=== PATIENT | male | born 1970 | race Caucasian/White ===

== ENCOUNTER 2018-07-16 15:45 | Inpatient (IN) | payer OTHER ==
[2018-07-16 17:54] VITALS: BMI 28.6
--- NOTE | 2018-07-16 18:18 | HP ---
COWS - Scale Resting Pulse: 0= [place] 80 or Below Sweatin=Flushed/Facial Moisture Restless Observation: 3= Extraneous Movement Pupil Size: 2= Moderately Dilated (Pupils = 4 mm) Bone or Joint Aches: 1= Mild Discomfort Runny Nose/ Eye Tearin= Nasal Congestion GI Upset > 30mins: 1= Stomach Cramp Tremor Observation: 2= Slight Tremor Visible Yawning Observation: 0= None Anxiety or Irritability: 1=Feels Anxious/Irritable Goose Flesh Skin: 0=Smooth Skin COWS Score: 13 CIWA Score - Admission Criteria [facility] Guidelines: Admission for Medically Managed Detox: Requires at least one of the followin. CIWA greater than 12 2. Seizures within the past 24 hours 3. Delirium tremens within the past 24 hours 4. Hallucinations within the past 24 hours 5. Acute intervention needed for co occurring medical disorder 6. Acute intervention needed for co occurring psychiatric disorder 7. Severe withdrawal that cannot be handled at a lower level of care (continued vomiting, continued diarrhea, abnormal vital signs) requiring intravenous medication and/or fluids 8. Admission ROS [facility] Chief Complaint: Here for detox. I'm having withdrawal from heroin. Allergies/Adverse Reactions: Allergies Allergy/AdvReac Type Severity Reaction Status Date / Time No Known Allergies Allergy Verified 07/16/18 17:47 History of Present Illness: Here for heroin detox. Has had a few detoxe's in past, but this is the first admission to [facility]. Heroin use began at age 23. States current use x years. Marijuana use began at age 12. Uses 1-2 x/ month. Cocaine use began at age 35. Uses about $20/day Denies BZo use. Stopped Nicotine use 42 months ago. Longest length sobriety x 5 years - in . Overdoses x 2; last 2011. Has a Narcan kit at home. Denies seizures or blackouts. PMHx: Denies significant PMH MHHx: Anxiety, mild depression. Last saw a MH Provider 1 year ago. Denies thoughts of harming self or others. Patient Name: Malcom Paulino Date: 1970 Address: [address] [place] [address] Sex: Male Rx Written Rx Dispensed Drug Quantity Days Supply Prescriber Name 08/31/2017 08/31/2017 clonazepam 1 mg tablet 63 21 Leandro Calixto NP 07/30/2017 07/30/2017 clonazepam 1 mg tablet 90 30 Leandro Calixto NP Exam Limitations: No Limitations - Ebola screening Have you traveled outside of the country in the last 21 days: No (N) Have you had contact with anyone from an Ebola affected area: No Have you been sick,other than usual withdrawal symptoms: No (Denies recent exposure to measles.) Do you have a fever: No - Review of Systems Constitutional: Chills, Diaphoresis EENT: reports: Blurred Vision, Nose Congestion Respiratory: reports: No Symptoms reported Cardiac: reports: No Symptoms Reported GI: reports: Abdominal cramping : reports: No Symptoms Reported Musculoskeletal: reports: Back Pain (r/t withdrawal) Integumentary: reports: No Symptoms Reported Neuro: reports: Tremors Endocrine: reports: No Symptoms Reported Hematology: reports: No Symptoms Reported Psychiatric: reports: Judgement Intact, Orientated x3, Agitated, Anxious, Depressed (Denies thoughts of harming self or others.) Other Systems: Reviewed and Negative Patient History - PPD History Previous Implant?: Yes Documented Results: Negative w/o proof Implanted On Prior [facility] Admission?: Yes PPD to be Administered?: Yes - Smoking Cessation Smoking history: Former smoker Have you smoked in the past 12 months: No Hx Chewing Tobacco Use: No Initiated information on smoking cessation: No - Substance & Tx. History Hx Alcohol Use: No Hx Substance Use: Yes Substance Use Type: Cocaine, Marijuana, Opiates Hx Substance Use Treatment: Yes (detox, rehab) - Substances abused Heroin Substance route: Inhalation Frequency: Daily Amount used: 6 bags daily Age of first use: 23 Date of last use: 07/15/18 Admission Physical Exam BHS - Vital Signs Vital Signs: Vital Signs - 24 hr 07/16/18 17:49 Temperature 98.7 F Pulse Rate 70 Respiratory 16 Rate Blood Pressure 155/102 H - Physical General Appearance: Yes: Nourished, Mild Distress, Tremorous, Sweating, Anxious HEENTM: Yes: EOMI (Jerking movement of eyes upon (R) lateral gaze), Hearing grossly Normal, Normocephalic, Normal Voice, LUISA (Pupils = 4 mm), Pharynx Normal Respiratory: Yes: Lungs Clear, Normal Breath Sounds, No Respiratory Distress Neck: Yes: No masses,lesions,Nodules, Supple Breast: Yes: Breast Exam Deferred Cardiology: Yes: Regular Rhythm, Regular Rate, S1, S2 Abdominal: Yes: Non Tender, Flat, Soft, Increased Bowel Sounds Genitourinary: Yes: Within Normal Limits Back: Yes: Normal Inspection Musculoskeletal: Yes: full range of Motion, Gait Steady Extremities: Yes: Normal Capillary Refill, Normal Range of Motion, Non-Tender, Tremors Neurological: Yes: roustabout head II-XII NML intact (Jerking movement of eyes upon (R) lateral gaze), Fully Oriented, Alert, Motor Strength 5/5 Integumentary: Yes: Normal Color, Warm, Other (Cracked skin at fold of toes, dry flaky skin on feet) Lymphatic: Yes: Within Normal Limits - Diagnostic (1) Opioid dependence with withdrawal Current Visit: Yes Status: Acute (2) Cannabis abuse, uncomplicated Current Visit: Yes Status: Chronic (3) Cocaine dependence, uncomplicated Current Visit: Yes Status: Chronic (4) Elevated blood pressure reading in office without diagnosis of hypertension Current Visit: Yes Status: Acute (5) Tinea pedis Current Visit: Yes Status: Chronic Qualifiers: Laterality: bilateral Qualified Code(s): B35.3 - Tinea pedis (6) Nystagmus Current Visit: Yes Status: Acute Cleared for Admission [facility] - Detox or Rehab [facility] Level of Care: Medically Managed Detox Regimen/Protocol: Methadone Claeared for Rehab Admission: No Breathalyzer - Breathalyzer Breathalyzer: 0 Urine Drug Screen - Test Device Lot number: [id number] Expiration date: 04/01/19 - Control Is test valid?: Yes - Results Drug screen NEGATIVE: No Urine drug screen results: THC-Marijuana, FARHAN-Cocaine, BZO-Benzodiazepines Inpatient Rehab Admission - Rehab Decision to Admit Inpatient rehab admission?: No
[2018-07-16] MEDS ORDERED: IBUPROFEN 400 MG TABLET (FP) PO PRN (18:39)
[2018-07-16] MEDS ORDERED: MAG HYDROX/AL HYDROX/SIMETH 30 ML UNIT-DOSE CUP PO PRN (18:39)
[2018-07-16] MEDS ORDERED: PROCHLORPERAZINE MALEATE 5 MG TABLET PO PRN (18:39)
[2018-07-16] MEDS ORDERED: BISMUTH SUBSALICYLATE 524 MG/30 ML UD PO PRN (18:39)
[2018-07-16] MEDS ORDERED: cloNIDine HCL 0.1 MG TABLET PO PRN (18:39)
[2018-07-16] MEDS ORDERED: NALOXONE HCL 0.4 MG/ML VIAL IVPUSH PRN (18:39)
[2018-07-16] MEDS ORDERED: MAGNESIUM HYDROX 2400MG/30ML ORAL SUSPENSION 30 ML CUP PO PRN (18:39)
[2018-07-16] MEDS ORDERED: MAGNESIUM CITRATE 300 ML BOTTLE PO PRN (18:39)
[2018-07-16] MEDS ORDERED: MENTHOL/PHENOL 1 EACH UD MM PRN (18:39)
[2018-07-16] MEDS ORDERED: ACETAMINOPHEN 325 MG TABLET (FP) PO PRN ×2 (18:39)
[2018-07-16] MEDS ORDERED: cloNIDine HCL 0.1 MG TABLET PO ONE (19:08)
[2018-07-16] MEDS ORDERED: METHADONE HCL 10 MG TABLET (FOR DETOX USE ONLY) PO ONE ×2 (19:30→23:00)
[2018-07-16] MEDS: METHOCARBAMOL 500 MG TABLET PO PRN (20:20)
[2018-07-16] MEDS: THIAMINE HCL 100 MG TABLET (FP) PO SCH (22:04)
[2018-07-16] MEDS: TOLNAFTATE 1% CREAM 15 GM TUBE TP SCH (22:05)
[2018-07-16] MEDS: MELATONIN 5 MG TABLETS PO PRN (22:05)
[2018-07-16] MEDS: clonazePAM 0.5 MG TABLET PO PRN (22:06)
--- NOTE | 2018-07-17 09:41 | PN ---
BHS COWS - Scale Resting Pulse: 0= [place] 80 or Below Sweatin= Chills/Flushing Restless Observation: 1= Difficult to Sit Still Pupil Size: 0= Normal to Room Light Bone or Joint Aches: 4=Acute Joint/Muscle Pain Runny Nose/ Eye Tearin= None GI Upset > 30mins: 0= None Tremor Observation of Outstretched Hands: 2= Slight Tremor Visible Yawning Observation: 1= 1-2x During Session Anxiety or Irritability: 2=Irritable/Anxious Goose Flesh Skin: 0=Smooth Skin COWS Score: 11 BHS Progress Note (SOAP) Subjective: c/o sweats, anxiety, body aches, and irritability. Objective: 07/17/18 09:35 Vital Signs 07/17/18 07/17/18 07/17/18 03:30 06:00 09:15 Temperature 97.0 F L 98.6 F Pulse Rate 56 L 58 L Respiratory 18 18 18 Rate Blood Pressure 142/78 131/63 Labs pending. Assessment: 07/17/18 09:36 AOX3, in no respiratory distress Full ROM, ambulating in the unit. withdrawal symptoms persists. Plan: continue detox increase fluids.
[2018-07-17] MEDS ORDERED: METHADONE HCL 10 MG TABLET (FOR DETOX USE ONLY) PO ONE (10:00)
[2018-07-17 10:14] LABS: HEMATOCRIT 40.6 % (35.4-49); HEMOGLOBIN 13.5 GM/dL (11.7-16.9); MCH 29.3 pg (25.7-33.7); MCHC 33.3 g/dl (32.0-35.9); MEAN PLT VOLUME 8.9 fl (7.5-11.1); PLATELET COUNT 242 K/MM3 (134-434); RBC 4.61 M/mm3 (4.00-5.60); RDW 13.6 % (11.9-15.9); WHITE BLOOD COUNT 8.1 K/mm3 (4.0-10.0)
[2018-07-17 10:15] LABS: ALBUMIN 3.2 g/dl (3.4-5.0); BILIRUBIN,TOTAL 0.4 mg/dL (0.2-1); CALCIUM 8.8 mg/dL (8.5-10.1); CREATININE 1.1 mg/dL (0.55-1.3); POTASSIUM 3.6 mmol/L (3.5-5.1); TOT PROT 6.6 g/dl (6.4-8.2)
[2018-07-17] MEDS: PRENATAL VITAMINS W/ FOLIC ACID TABLET (FP) PO SCH (10:28)
[2018-07-17] MEDS: TOLNAFTATE 1% CREAM 15 GM TUBE TP SCH ×2 (10:28→23:13)
--- NOTE | 2018-07-17 10:53 | EKG ---
Test Reason : Blood Pressure : / mmHG Vent. Rate : 066 BPM Atrial Rate : 066 BPM P-R Int : 194 ms QRS Dur : 084 ms QT Int : 400 ms P-R-T Axes : 067 015 023 degrees QTc Int : 419 ms NORMAL SINUS RHYTHM POSSIBLE LEFT ATRIAL ENLARGEMENT SEPTAL INFARCT , AGE UNDETERMINED ABNORMAL ECG NO PREVIOUS ECGS AVAILABLE Confirmed by KARTHIK CASANOVA MD ([id number]) on 07/17/2018 10:53:08 AM Referred By: Confirmed By:KARTHIK CASANOVA MD
[2018-07-17] MEDS: THIAMINE HCL 100 MG TABLET (FP) PO SCH (23:13)
[2018-07-18] MEDS ORDERED: METHADONE HCL 10 MG TABLET (FOR DETOX USE ONLY) PO ONE (10:00)
[2018-07-18] MEDS: TOLNAFTATE 1% CREAM 15 GM TUBE TP SCH ×2 (10:13→22:48)
[2018-07-18] MEDS: PRENATAL VITAMINS W/ FOLIC ACID TABLET (FP) PO SCH (10:15)
[2018-07-18] MEDS: clonazePAM 0.5 MG TABLET PO PRN ×2 (10:17→22:46)
[2018-07-18] MEDS: METHOCARBAMOL 500 MG TABLET PO PRN (10:17)
--- NOTE | 2018-07-18 12:32 | PN ---
BHS COWS - Scale Resting Pulse: 0= [place] 80 or Below Sweatin= Chills/Flushing Restless Observation: 3= Extraneous Movement Pupil Size: 0= Normal to Room Light Bone or Joint Aches: 1= Mild Discomfort Runny Nose/ Eye Tearin= Runny Nose/Eyes GI Upset > 30mins: 1= Stomach Cramp Tremor Observation of Outstretched Hands: 2= Slight Tremor Visible Yawning Observation: 0= None Anxiety or Irritability: 2=Irritable/Anxious Goose Flesh Skin: 0=Smooth Skin COWS Score: 12 BHS Progress Note (SOAP) Subjective: Chills, back pain, anxious, angry, agitated Objective: 07/18/18 12:28 Last Vital Signs Temp Pulse Resp BP Pulse Ox 98.2 F 73 18 140/95 07/18/18 09:45 07/18/18 09:45 07/18/18 09:45 07/18/18 09:45 Elevated b/p 140/95m (on clonidine 0.1mg prn) Laboratory Tests 07/17/18 07/17/18 07/17/18 07:45 07:45 07:45 WBC 8.1 RBC 4.61 Hgb 13.5 Hct 40.6 MCV 88.0 MCH 29.3 MCHC 33.3 RDW 13.6 Plt Count 242 MPV 8.9 Sodium 140 Potassium 3.6 Chloride 107 Carbon Dioxide 28 Anion Gap 6 L BUN 16 Creatinine 1.1 Est GFR (CKD-EPI)AfAm 91.52 Est GFR (CKD-EPI)NonAf 78.96 Random Glucose 108 H Calcium 8.8 Total Bilirubin 0.4 AST 16 ALT 20 Alkaline Phosphatase 75 Total Protein 6.6 Albumin 3.2 L RPR Titer Nonreactive Labs reviewed Assessment: 07/18/18 12:29 Withdrawal symptoms Plan: Continue detox Encouraged PO water hydration Elevated b/p: could be r/t withdrawal, continue clonidine 0.1mg PO prn
[2018-07-18] MEDS: MELATONIN 5 MG TABLETS PO PRN (22:45)
[2018-07-18] MEDS: THIAMINE HCL 100 MG TABLET (FP) PO SCH (22:45)
[2018-07-19 09:22] VITALS: BP 139/87; PULSE 77; TEMP 98.1
[2018-07-19] MEDS ORDERED: METHADONE HCL 10 MG TABLET (FOR DETOX USE ONLY) PO ONE ×2 (10:00→11:45)
[2018-07-19] MEDS: TOLNAFTATE 1% CREAM 15 GM TUBE TP SCH (10:19)
[2018-07-19] MEDS: PRENATAL VITAMINS W/ FOLIC ACID TABLET (FP) PO SCH (10:20)
[2018-07-19] MEDS ORDERED: METHADONE HCL 5 MG TABLET (FOR DETOX USE ONLY) PO ONE (12:30)
--- NOTE | 2018-07-19 13:29 | PN ---
BHS COWS - Scale Resting Pulse: 0= [place] 80 or Below Sweatin= Chills/Flushing Restless Observation: 1= Difficult to Sit Still Pupil Size: 0= Normal to Room Light Bone or Joint Aches: 2= Severe Diffuse Aches Runny Nose/ Eye Tearin= Runny Nose/Eyes GI Upset > 30mins: 0= None Tremor Observation of Outstretched Hands: 0= None Yawning Observation: 1= 1-2x During Session Anxiety or Irritability: 4=Extreme Anxiety Goose Flesh Skin: 0=Smooth Skin COWS Score: 11 S Progress Note (SOAP) Subjective: Body Aches, Nasal Congestion, Interrupted Sleep, Anxious. Objective: PATIENT A & O X 3, OBSERVED AMBULATING ON UNIT UNASSISTED. IN NO ACUTE DISTRESS. 07/19/18 13:31 Vital Signs Temperature 98.1 F 07/19/18 09:21 Pulse Rate 77 07/19/18 09:21 Respiratory Rate 18 07/19/18 09:21 Blood Pressure 139/87 07/19/18 09:21 O2 Sat by Pulse Oximetry (%) Laboratory Tests 07/17/18 07/17/18 07/17/18 07:45 07:45 07:45 WBC 8.1 RBC 4.61 Hgb 13.5 Hct 40.6 MCV 88.0 MCH 29.3 MCHC 33.3 RDW 13.6 Plt Count 242 MPV 8.9 Sodium 140 Potassium 3.6 Chloride 107 Carbon Dioxide 28 Anion Gap 6 L BUN 16 Creatinine 1.1 Est GFR (CKD-EPI)AfAm 91.52 Est GFR (CKD-EPI)NonAf 78.96 Random Glucose 108 H Calcium 8.8 Total Bilirubin 0.4 AST 16 ALT 20 Alkaline Phosphatase 75 Total Protein 6.6 Albumin 3.2 L RPR Titer Nonreactive LABS NOTED. Assessment: 07/19/18 13:31 WITHDRAWAL SYMPTOMS. Plan: CONTINUE DETOX. INCREASE DAILY PO FLUID INTAKE. PRN ROBAXIN PO FOR BODY HHCES /MUSCLE SPASMS. PATIENT REPORTS THAT HE IS CURRENTLY EXPERIENCING CONSIDERABLE WITHDRAWAL SYMPTOMS. METHADONE DETOX PROTOCOL EXTENDED BY ONE DAY SO THAT PATIENT WILL BE DISCHARGED ON 07/21/2018.
[2018-07-20] MEDS ORDERED: METHADONE HCL 5 MG TABLET (FOR DETOX USE ONLY) PO ONE (06:00)
[2018-07-20] MEDS ORDERED: METHADONE HCL 10 MG TABLET (FOR DETOX USE ONLY) PO ONE (10:00)
[2018-07-21] MEDS ORDERED: METHADONE HCL 5 MG TABLET (FOR DETOX USE ONLY) PO ONE (06:00)
== END 2018-07-19 13:15 | disposition left against medical advice (07) | DRG 770 ==
LOC: YASAS 15:45 → Y6N 19:13
PROVIDERS: ADMIT Surgery; ATTEND Surgery
PROC: HZ2ZZZZ Detoxification Services for Substance Abuse Treatment (ICD-10-PCS; principal; 2018-07-16)
DX: F11.23 Opioid dependence with withdrawal (principal); F14.20 Cocaine dependence, uncomplicated; F12.10 Cannabis abuse, uncomplicated; B35.3 Tinea pedis; H55.00 Unspecified nystagmus; R03.0 Elevated blood-pressure reading, without diagnosis of hypertension; Z59.0 Homelessness
CPT/HCPCS: 36415; 80053; 85027; 86593; 93005; 93010; J0735